=== PATIENT | female | born 1970 | race Caucasian/White ===

== ENCOUNTER → 2016-05-29 | Outpatient (CLI) | payer BC, OTHER ==
--- NOTE | 2016-06-01 14:37 | DI ---
LEFT DIAGNOSTIC MAMMOGRAMS, 05/29/2016 9:24 AM: Clinical History: Recall for abnormal screening mammogram. 2 clusters of punctate calcifications were identified. The larger cluster is located in the lower outer quadrant near the 4:00-5:00 position 5 cm from the nipple. A second cluster was identified in the upper-outer quadrant at the 2:00 position roughly 3.5 cm from the nipple. Examination of the left breast shows no evidence of a skin mole at ei ther location. Prior Exam: 05/26/2016. Digital tomosynthesis scans of the left breast are obtained with the [facility] nit. C-View images are obtained in the same projections as in the screening exam. In addition, a emma e left mediolateral projection and magnification compression spot films are obtained in all 3 project ions. CAD review is also performed. Breast tissue density is rated as heterogenously dense. There is no mass or focus of architectural di stortion identified in either breast. The smaller cluster of calcifications cyst of approximately 3 p unctate calcifications that are submillimeter in diameter and appear benign. The larger cluster of ca lcifications have a "crushed stone" or pleomorphic appearance. This cluster is located in proximity t o the skin surface. As noted in the history, there is no skin mole in proximity to the calcifications . There is no mass associated with this larger cluster of calcifications. Skin contour, nipple, and l ower axillary region are normal. Follow Up: Surgical consultation is recommended for biopsy. This can either be performed with an open biopsy and preoperative needle localization or with a stereotactic biopsy procedure. BIRADS Category: 4: Suspicious finding - biopsy should be considered for the larger cluster of calcif ications in the lower outer quadrant. The smaller cluster of calcifications located in the upper oute r quadrant are benign. Reading: Suspicious finding. Biopsy should be considered. Addendum: After review of this exam, there is the possibility that the larger cluster of calcifications might b e in the skin because they lie quite superficially in the breast. After discussion with FABIAN Leblanc, it was decided to bring this patient back for tangential views of this breast to see if we ca n demonstrate that there are either within the breasts or actually in the skin surface before any bio psy is performed. This can be done at the patient's convenience at no additional charge.
--- NOTE | 2016-06-01 14:37 | DI ---
LEFT BREAST ULTRASOUND, 05/29/2016 9:24 AM: Clinical History: Recall for abnormal screening mammogram that revealed 2 clusters of punctate calcif ications in the left breast. The smaller cluster was located in the upper-outer quadrant near the 2:0 0 position and the calcifications are felt to be benign. The calcifications in the lower outer quadra nt near the 4:00-5:00 position are suspicious for malignancy. Scans are performed by the technologist and myself through all four quadrants of the left breast with the high resolution linear array probe. Color Doppler ultrasound was also performed. Scans reveal no solid or cystic mass. Specifically, no lesion is seen in the area of question. Follow Up: See recommendations on mammography. BIRADS Category: 4: Suspicious finding - biopsy should be considered. Reading: Suspicious finding. Biopsy should be considered. Comment: Before any biopsy is performed, tangential views of the left breast should be performed with mammography in order to verify that the large cluster of calcifications are actually in the breast t issue and not in skin tissue.
== END ==
LOC: MAMMO 09:21
PROVIDERS: ATTEND Nurse Practitioner Family
DX: R92.8 Other abnormal and inconclusive findings on diagnostic imaging of breast (principal)
CPT/HCPCS: 76641; G0206

== ENCOUNTER → 2016-08-03 | Outpatient (CLI) | payer BC, OTHER | LOC: MOB LAB 08:39 | DX: L08.89 Other specified local infections of the skin and subcutaneous tissue (principal); Z98.890 Other specified postprocedural states | CPT/HCPCS: 87070; 87077; 87185; 87186; 87205 ==